=== PATIENT | female | born 1990 | race Caucasian/White ===

== ENCOUNTER 2018-05-14 14:24 | Outpatient (REF) | payer OTHER, SELFPAY | END 2018-05-14 14:44 | LOC: NCHCN 14:24 | PROVIDERS: PCP Physician Assistant; Visit Provider Physician Assistant Medical | DX: E03.9 Hypothyroidism, unspecified (principal) | CPT/HCPCS: 84443 ==

== ENCOUNTER 2018-10-31 15:41 | Outpatient (REF) | payer OTHER, SELFPAY ==
[2018-10-31 21:25] LABS: TSH 2.37 uIU/mL (0.358-3.74)
== END 2018-10-31 16:01 ==
LOC: NCHCN 15:41
PROVIDERS: PCP Physician Assistant Medical; Visit Provider Physician Assistant Medical
DX: E03.9 Hypothyroidism, unspecified (principal)
CPT/HCPCS: 84443

== ENCOUNTER 2019-05-16 09:31 | Outpatient (REF) | payer OTHER, SELFPAY ==
[2019-05-16 19:03] LABS: TSH (W/Ref FT4) 4.84 uIU/mL (0.36-3.74)
== END 2019-05-16 09:51 ==
LOC: NCHCN 09:31
PROVIDERS: PCP Nurse Practitioner Family; Visit Provider Nurse Practitioner Family
DX: E03.9 Hypothyroidism, unspecified (principal)
CPT/HCPCS: 84439; 84443

== ENCOUNTER 2020-11-17 17:19 | Outpatient (REF) | payer OTHER, SELFPAY ==
[2020-11-17 19:53] LABS: Abs Immature Grans 0.02 10^3/uL (0.0-0.06); Absolute Basophil Count 0.06 10^3/uL (0.0-0.2); Absolute Eosinophil Count 0.22 10^3/uL (0.0-0.7); Absolute Lymphocyte Count 1.88 10^3/uL (1.2-3.4); Absolute Monocyte Count 0.51 10^3/uL (0.1-0.8); Absolute Neutrophil Count 4.34 10^3/uL (1.2-6.7); Basophils % 0.9; Eosinophils % 3.1; HCT 36.7 % (36.0-46.0); HGB 12.4 g/dL (11.2-15.7); Immature Grans % 0.3; Lymphocytes % 26.7; MCH 30.7 pg (27.0-33.0); MCHC 33.8 % (32.0-36.0); MCV 90.8 fL (80-95); MPV 10.6 fL (8.0-11.0); Monocytes % 7.3; Neutrophils % 61.7; Nucleated RBC 0 %; Platelet Count 354 10^3/uL (130-400); RBC 4.04 10^6/uL (3.93-5.22); RDW 12.4 % (11.7-14.6); RDW-SD 41.5 fL; WBC 7.03 10^3/uL (4.4-10.8)
[2020-11-17 20:22] LABS: Ferritin 50 ng/mL (8-252); TSH 4.22 uIU/mL (0.36-3.74)
[2020-11-17 20:55] LABS: Iron 54 ug/dL (50-170); Total Iron Binding Capacity 288 ug/dL (250-450); Transferrin Sat 19 % (15-50)
[2020-11-17 21:01] LABS: FREE T4 1.05 ng/dL (0.76-1.46)
[2020-11-18 16:59] LABS: T3, Total 99 ng/dL (97-169)
== END 2020-11-17 17:20 | disposition home or self-care (01) ==
LOC: NCHCN 17:19
PROVIDERS: PCP Nurse Practitioner Family; Visit Provider Physician Assistant
DX: E03.9 Hypothyroidism, unspecified (principal); Z86.2 Personal history of diseases of the blood and blood-forming organs and certain disorders involving the immune mechanism
CPT/HCPCS: 82728; 83540; 83550; 84439; 84443; 84480; 85025

== ENCOUNTER 2021-01-05 18:03 | Outpatient (REF) | payer OTHER, SELFPAY ==
[2021-01-05 19:37] LABS: FREE T4 0.99 ng/dL (0.76-1.46); TSH 2.56 uIU/mL (0.36-3.74)
== END 2021-01-05 18:04 | disposition home or self-care (01) ==
LOC: NCHCN 18:03
PROVIDERS: PCP Nurse Practitioner Family; Visit Provider Physician Assistant
DX: E03.9 Hypothyroidism, unspecified (principal)
CPT/HCPCS: 84439; 84443

== ENCOUNTER 2021-12-16 12:35 | Outpatient (REF) | payer OTHER, SELFPAY ==
[2021-12-16 20:10] LABS: TSH (W/Ref FT4) 2.83 uIU/mL (0.36-3.74)
== END 2021-12-16 12:36 | disposition home or self-care (01) ==
LOC: NCHCN 12:35
PROVIDERS: PCP Nurse Practitioner Family; Visit Provider Physician Assistant
DX: E03.9 Hypothyroidism, unspecified (principal)
CPT/HCPCS: 84443

== ENCOUNTER 2022-09-27 17:17 | Outpatient (REF) | payer OTHER, SELFPAY ==
[2022-09-27 18:37] LABS: Abs Immature Grans 0.01 10^3/uL (0.0-0.06); Absolute Basophil Count 0.06 10^3/uL (0.0-0.2); Absolute Eosinophil Count 0.21 10^3/uL (0.0-0.7); Absolute Lymphocyte Count 1.73 10^3/uL (1.2-3.4); Absolute Monocyte Count 0.48 10^3/uL (0.1-0.8); Absolute Neutrophil Count 4.36 10^3/uL (1.2-6.7); Basophils % 0.9; Eosinophils % 3.1; HCT 38.3 % (36.0-46.0); HGB 12.9 g/dL (11.2-15.7); Immature Grans % 0.1; Lymphocytes % 25.3; MCH 30.1 pg (27.0-33.0); MCHC 33.7 % (32.0-36.0); MCV 89 fL (80-95); MPV 9.7 fL (8.0-11.0); Neutrophils % 63.6; Platelet Count 369 10^3/uL (130-400); RBC 4.29 10^6/uL (3.93-5.22); RDW 12.5 % (11.7-14.6); RDW-SD 41.2 fL; WBC 6.85 10^3/uL (4.4-10.8)
[2022-09-27 18:49] LABS: Iron 70 ug/dL (50-170); Total Iron Binding Capacity 307 ug/dL (250-450); Transferrin Sat 23 % (15-50)
[2022-09-27 19:11] LABS: Vitamin D 25 Total 35.3 ng/mL (30-100)
[2022-09-27 19:12] LABS: ALT 13 U/L (14-59); AST 18 U/L (15-37); Albumin 4.7 g/dL (3.4-5.0); Alkaline Phosphatase 40 U/L (46-116); BUN 14 mg/dL (7-18); Bilirubin, Total 0.5 mg/dL (0.2-1.0); CREATININE 0.9 mg/dL (0.55-1.02); Chloride 104 mmol/L (98-107); Estimated GFR 86.03 (mL/min/1.73m2); Glucose 91 mg/dL (74-106); Magnesium 2.2 mg/dL (1.8-2.4); Potassium 3.9 mmol/L (3.5-5.1); Sodium 141 mmol/L (136-145); TSH 5.21 uIU/mL (0.36-3.74); Total Protein 8.2 g/dL (6.4-8.2)
[2022-09-27 19:53] LABS: Ferritin 52 ng/mL (8-252)
[2022-09-27 19:54] LABS: Vitamin B12 551 pg/mL (193-986)
[2022-09-28 18:09] LABS: T3, Total 100 ng/dL (97-169)
[2022-09-28 19:03] LABS: Thyroglobulin Antibody 23 U/mL (<=60); Thyroperoxidase Antibody >1300 U/mL (<=60)
== END 2022-09-27 17:18 | disposition home or self-care (01) ==
LOC: NCHCN 17:17
PROVIDERS: PCP Nurse Practitioner Family; Visit Provider Physician Assistant
DX: E03.9 Hypothyroidism, unspecified (principal); L65.9 Nonscarring hair loss, unspecified; D50.9 Iron deficiency anemia, unspecified; F41.8 Other specified anxiety disorders
CPT/HCPCS: 80053; 82306; 86376; 82607; 82728; 83540; 83550; 83735; 84443; 84480; 85025

== ENCOUNTER 2022-11-03 18:30 | Outpatient (REF) | payer OTHER, SELFPAY ==
[2022-11-03 19:41] LABS: TSH 2.48 uIU/mL (0.36-3.74)
== END 2022-11-03 18:31 | disposition home or self-care (01) ==
LOC: NCHCN 18:30
PROVIDERS: PCP Nurse Practitioner Family; Visit Provider Physician Assistant
DX: E06.3 Autoimmune thyroiditis (principal)
CPT/HCPCS: 84443

== ENCOUNTER 2023-04-12 17:21 | Outpatient (REF) | payer OTHER, SELFPAY | END 2023-04-12 17:22 | disposition home or self-care (01) | LOC: NCHCN 17:21 | PROVIDERS: PCP Nurse Practitioner Family; Visit Provider Physician Assistant | DX: N89.8 Other specified noninflammatory disorders of vagina (principal) | CPT/HCPCS: 87480; 87510; 87660 ==

== ENCOUNTER 2023-10-02 18:01 | Outpatient (REF) | payer SELFPAY ==
[2023-10-02 19:48] LABS: FREE T4 0.84 ng/dL (0.76-1.46); TSH 5.53 uIU/mL (0.36-3.74)
== END 2023-10-02 18:02 | disposition home or self-care (01) ==
LOC: NCHCN 18:01
PROVIDERS: PCP Nurse Practitioner Family; Visit Provider Nurse Practitioner Family
DX: E06.3 Autoimmune thyroiditis (principal)
CPT/HCPCS: 84439; 84443

== ENCOUNTER 2025-02-13 11:49 | Outpatient (REF) | payer OTHER, SELFPAY ==
[2025-02-18 13:35] LABS: Lyme Ab w Rflx to Lyme Confirm Negative (Negative)
== END 2025-02-13 11:50 | disposition home or self-care (01) ==
LOC: NCHCN 11:49
PROVIDERS: PCP Nurse Practitioner Family; Visit Provider Internal Medicine
DX: M13.161 Monoarthritis, not elsewhere classified, right knee (principal)
CPT/HCPCS: 86618